=== PATIENT | female | born 1930 | race Caucasian/White ===

== ENCOUNTER 2019-08-15 16:31 | Emergency (ER) | payer OTHER ==
[~2019-08-15] VITALS: Ht 152.4 cm; Wt 57.6 kg
[2019-08-15] MEDS ORDERED: VITAMIN B-121000 MC2 SUBLING (16:42)
[2019-08-15] MEDS ORDERED: SYNTHROID75 MCG PO (16:43)
[2019-08-15] MEDS ORDERED: VITAMIN D310000 UNI1 PO (16:43)
[2019-08-15 17:09] LABS: INFLUENZA A ANTIGEN Negative (Negative); INFLUENZA B ANTIGEN Negative (Negative)
[2019-08-15 18:37] VITALS: BP 157/82
== END 2019-08-15 18:39 | disposition home or self-care (01) ==
LOC: M.ERS 16:31
PROVIDERS: Physician Assistant
DX: R05 Cough (principal); R53.83 Other fatigue; E03.9 Hypothyroidism, unspecified; Z96.653 Presence of artificial knee joint, bilateral; Z90.710 Acquired absence of both cervix and uterus; Z88.5 Allergy status to narcotic agent